=== PATIENT | female | born 1965 | race African-American/Black ===

== ENCOUNTER → 2018-12-23 | Outpatient (CLI) | payer OTHER ==
[~2018-12-23] MED LIST: CYCLOBENZAPRINE10 MG PO; FLEXERIL PO; HYDROCHLOROTH12.5 MG PO; NAPROSYN500 MG PO; NEURONTIN 300300 M1 PO; NIFEDICAL XL60 MG PO; NIFEDIPINE10 MG PO; NORCO 5-325 TA1 EACH PO; VALACYCLOVIR1000 MG PO
== END ==
LOC: CAT 15:22
DX: Z13.6 Encounter for screening for cardiovascular disorders (principal); I25.10 Atherosclerotic heart disease of native coronary artery without angina pectoris; E78.00 Pure hypercholesterolemia, unspecified